=== PATIENT | female | born 1980 | race Two or more races ===

== ENCOUNTER 2022-11-27 06:50 | Day surgery (SDC) | payer OTHER ==
[~2022-11-27 06:50] MED LIST: ROCALTROL0.25 MCG PO; SYNTHROID150 MCG PO
[2022-11-27] MEDS ORDERED: MACROBID 100 M100 MG PO (11:12)
[2022-11-27] MEDS ORDERED: TRAM1TAB98 PO (11:13)
== END 2022-11-27 13:05 | disposition home or self-care (01) ==
LOC: CIR.AMB 06:50
PROVIDERS: ATTEND Obstetrics & Gynecology Gynecology
DX: N39.3 Stress incontinence (female) (male) (principal); Z20.822 Contact with and (suspected) exposure to COVID-19; Z86.16 Personal history of COVID-19; E66.09 Other obesity due to excess calories
CPT/HCPCS: 57288; C1771